=== PATIENT | male | born 1940 | race Caucasian/White ===

== ENCOUNTER 2017-04-13 19:56 | Emergency (ER) | payer MEDICARE, BC ==
[2017-04-13] MEDS ORDERED: ACETAMINOPHEN 500 MG 500 MG TAB PO ONE (20:08)
[2017-04-13] MEDS ORDERED: ACETAMINOPHEN 500 MG 500 MG TAB ONE (20:13)
[2017-04-13] MEDS ORDERED: NALOXONE HYDROCHLORIDE 0.4 MG/ML SOL IV ONE (20:31)
[2017-04-13] MEDS ORDERED: NALOXONE HYDROCHLORIDE 0.4 MG/ML SOL ONE (20:31)
[2017-04-13 20:48] LABS: BASOPHILS % (AUTO) 1 % (0-3); EOSINOPHILS % (AUTO) 0 % (0-9); HEMATOCRIT 49 % (39-53); MEAN CORPUSCULAR HGB CONC 34.3 gm/dl (32.0-36.0); MEAN CORPUSCULAR VOLUME 90 fL (80-100); NEUTROPHILS % (AUTO) 73.8 % (37-80)
[2017-04-13 20:58] LABS: APPEARANCE,URINE Clear; BILIRUBIN,URINE NEGATIVE (NEGATIVE); COLOR,URINE Yellow; GLUCOSE, URINE (UA) NEGATIVE (NEGATIVE); KETONES,URINE NEGATIVE (NEGATIVE); LEUKOCYTE ESTERASE ,URINE NEGATIVE (NEGATIVE); NITRATE,URINE NEGATIVE (NEGATIVE); OCCULT BLOOD,URINE TRACE INTACT (NEG-TRACE); PH,URINE 7.5; UROBILINOGEN,URINE 0.2 (0.2-1.0 EU)
[2017-04-13 21:05] LABS: METHADONE NEGATIVE (NEGATIVE); OPIATES(OP13) NEGATIVE (NEGATIVE); RBC,URINE 0-2 (0-3AV/HPF); TRICYCLIC ANTIDEPRESSANTS NEGATIVE (NEGATIVE); WBC,URINE 0-2 (0-5AV/HPF)
[2017-04-13 21:06] LABS: AMPHETAMINES NEGATIVE (NEGATIVE); OXYCODONE(OXY) POSITIVE (NEGATIVE); PROPOXYPHENE(PPX) NEGATIVE (NEGATIVE)
[2017-04-13] MEDS ORDERED: HYDROCORTISONE SODIUM SUCCIN 100 MG PDS IV ONE (21:15)
[2017-04-13] MEDS ORDERED: HYDROCORTISONE SODIUM SUCCIN 100 MG PDS ONE ×2 (21:25→21:27)
[2017-04-13] MEDS ORDERED: LEVOTHYROXINE SODIUM 50 MCG TAB ONE (21:27)
[2017-04-13 21:35] LABS: ALBUMIN 3.9 gm/dl (3.4-5.0); ALT 38 IU/L (14-63); CALCIUM 9.1 mg/dl (8.5-10.1); GLOM FILT RATE 18 mL/min (>60); POTASSIUM 4.3 mMol/L (3.5-5.1); SODIUM 138 mMol/L (136-145)
[2017-04-13] MEDS ORDERED: CEFTRIAXONE 1 GM PDS 2 GM in SODIUM CHLORIDE 0.9% 100 ML 100 ML IV ONE (21:51)
[2017-04-13] MEDS ORDERED: CEFTRIAXONE 1 GM PDS ONE (21:53)
[2017-04-13] MEDS ORDERED: METOPROLOL TARTRATE 25 MG TAB PO ONE (22:06)
[2017-04-13] MEDS ORDERED: METOPROLOL TARTRATE 50 MG TAB ONE (22:10)
[2017-04-13] MEDS ORDERED: METOPROLOL TARTRATE 5 MG/5 ML SOL IV ONE ×2 (22:17)
[2017-04-13 23:59] VITALS: TEMP 98.8
[2017-04-14 00:06] VITALS: BP 98/60; PULSE 92; RESP 23; O2SAT 95
[2017-04-14] MEDS ORDERED: LEVOTHYROXINE SODIUM 50 MCG TAB PO SCH (07:00)
[2017-04-14] MEDS ORDERED: CEFTRIAXONE IV SCH (09:00)
[2017-04-14] MEDS ORDERED: DEXTROSE IV SCH (09:00)
[2017-04-14] MEDS ORDERED: PDS IV SCH (09:00)
[2017-04-15 07:30] LABS: *CORTISOL PM 2.2 mcg/dl (3.1-16.6)
== END 2017-04-13 22:44 | disposition short-term general hospital (02) | DRG 645 ==
LOC: ED 19:56
DX: E23.0 Hypopituitarism (principal); R41.0 Disorientation, unspecified; R53.1 Weakness
CPT/HCPCS: 70450; 71010; 80053; 80305; 80307; 81001; 84443; 84484; 85025; 85610; 85730; 87040; 87804; 93005; 96365; 96374; 96375; 99284; 99291; J0696; J1720; J2310

== ENCOUNTER 2019-02-27 09:46 | Day surgery (SDC) | payer MEDICARE, BC | END 2019-02-27 12:28 | disposition home health service (06) | LOC: SURG 09:46 ==